=== PATIENT | male | born 1975 | race Caucasian/White ===

== ENCOUNTER 2019-08-22 09:51 | Emergency (ER) | payer SELFPAY | END 2019-08-22 16:16 | LOC: ERS 09:51 | DX: F23 Brief psychotic disorder (principal); E78.5 Hyperlipidemia, unspecified; E78.00 Pure hypercholesterolemia, unspecified; I10 Essential (primary) hypertension; F31.9 Bipolar disorder, unspecified; F17.210 Nicotine dependence, cigarettes, uncomplicated; Z79.899 Other long term (current) drug therapy | CPT/HCPCS: 99285 ==

== ENCOUNTER 2023-12-30 15:44 | Emergency (ER) | payer SELFPAY ==
[2023-12-30] MEDS ORDERED: HYDROcodone/Acetaminophen 5/325 mg Tablet ONE (18:21)
== END 2023-12-30 19:54 | disposition home or self-care (01) ==
LOC: ERS 15:44
DX: N50.811 Right testicular pain (principal); Z55.6 Problems related to health literacy; Z87.891 Personal history of nicotine dependence
CPT/HCPCS: 76870; 93976